=== PATIENT | male | born 1945 | race Caucasian/White ===

== ENCOUNTER → 2018-07-15 07:37 | Day surgery (SDC) | payer MEDICARE ==
[~2018-07-15 07:37] MED LIST: Acetaminophen TAB* 325 MG PO PRN; Buffered Lidocaine 0.9% SYRIN* 5 ML/SYR SYRINGE INTRADERM ONE; EPHEDrine (Pressors)* 50 MG/ML VIAL ONE; Glycopyrrolate IV* 0.2 MG/ML 1 ML VIAL ONE; HYDROmorphone INJ1* 1 MG/ML SYRINGE ONE; Ketorolac INJ* 30 MG/ML 1 ML VIAL IV PRN; Ketorolac INJ* 30 MG/ML 1 ML VIAL ONE; Lidocaine 2% PF * 5 ML VIAL ONE; Metoprolol Tartrate TAB* 25 MG ONE; Metoprolol Tartrate TAB* 25 MG PO ONE; Naloxone* 0.4 MG/ML 1 ML VIAL IV PRN; Neostigmine Methylsulfate* 1 MG/ML 10 ML VIAL (1 mg/ml) ONE; Propofol* 10 MG/ML 20 ML BTL IV PUSH ONE; Succinylcholine* 20 MG/ML 10 ML VIAL ONE
[2018-07-15 11:38] VITALS: BP 148/61
--- NOTE | 2018-07-16 03:30 | PRO ---
DATE: 07/15/18 [facility] REFERRING PHYSICIAN: Cas Johnson* PROCEDURE: Upper gastrointestinal endoscopy and CLOtest, colonoscopy, and ileoscopy INDICATION: This 73-year-old man with history of colon polyps. He has a difficult colon and is very sensitive to sigmoid pressure and also becomes agitated with conscious sedation at times. The last several colonoscopies have been done with Anesthesia assistance. At this time, he does not have any bowel related problems, going daily and without any bleeding. He does have some indigestion or unsettlement. His appetite is okay. There is a history of duodenal ulcer in his teenage years. He had a negative CLOtest few years back. He had a PEG tube placed in 2013 and had a hernia at the exit site, which was surgically repaired. 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 There is a history of gout in the past, for which he would take indomethacin sporadically. He is now on Zyloprim. He does take indomethacin now daily for headaches, which he associates with being treated for the ENT tumor. That is still under investigation and the indomethacin may be raised twice a day. He also takes a baby aspirin. Informed consent was obtained, including discussion of his risk for peptic ulcer disease given the past history of an ulcer, some mild symptoms and chronic NSAIDs use with a powerful agent. ENDOSCOPIST: Dr. Douglas. MEDICATIONS: Propofol per Dr. Stacie Katz. FINDINGS: He is a slender, healthy-appearing, older man, in no distress. He denies any recent vomiting and says there have been no issues with swallowing since his radiation. EGD: Larynx - minimal, uninflamed views. Esophagus - easily entered, the mucosa is normal in the upper, mid, and lower esophagus with the EG junction at 40 and then a small hiatal hernia. There is a minimal irritation at the squamocolumnar junction, but no Cisse's change and no erosions. Stomach - there is a mild granular gastritis with a few focal erosions in the distal gastric body. Rugal folds were generally normal. Cardia, fundus, and body are normal. The pyloric antrum is normal. CLOtest was taken mid gastric body. Duodenum - pylorus appears normal. In the bulb, there is some fair amount of erythema and granular change, but no actual erosions and no bleeding or ulcer. There is no gross deformity or scar. The second through fourth portions of the duodenum appear normal. Scopes were exchanged. COLONOSCOPY: Initial views show a good prep with normal mucosa. Scope encounters a very floppy, redundant colon in the sigmoid, descending, transverse , and right colon. Hand checks were used even on top of the monitored anesthesia. There was 1 to 2+ sigmoid diverticulosis without any erythema or scarring. The right colon, cecum, ileocecal valve, and 15 cm of terminal ileum were normal. Right colonic retroflexion was not possible. Coming back from the cecum, there were no polyps. Final views in the rectum appeared normal including retroflexion. IMPRESSION: 1. Mild gastritis - CLOtest pending. Addendum: Clotest negative 2. Duodenitis - CLOtest pending - the patient in the recovery area while awake and with his son was advised that by his physician, should an increase in dyspepsia occur or if his indomethacin dose is doubled or tripled, to manage headaches or other conditions. 3. Mild sigmoid diverticulosis. 4. History of colon polyps - none today, and at this point, no routine followup is advised. [id number]/[id number] #: [id number] [facility]ITAL[facility]sela
== END | disposition home or self-care (01) ==
LOC: OR 07:37
PROVIDERS: ATTEND Internal Medicine Gastroenterology
DX: Z86.010 Personal history of colon polyps (principal); K57.30 Diverticulosis of large intestine without perforation or abscess without bleeding; K29.60 Other gastritis without bleeding; I25.2 Old myocardial infarction; Z95.0 Presence of cardiac pacemaker; K29.80 Duodenitis without bleeding
CPT/HCPCS: 87077; J0330; J1170; J1885; J2704; J2710